=== PATIENT | male | born 1975 | race Hispanic/Latino ===

== ENCOUNTER 2019-01-03 11:40 | Emergency (ER) | payer BC ==
[~2019-01-03] VITALS: Ht 170.2 cm; Wt 141.8 kg
[2019-01-03] MEDS ORDERED: SODIUM CHLORIDE 0.9% 1000ML 1,000 ML IV SCH (12:00)
[2019-01-03] MEDS ORDERED: ONDANSETRON ODT8 MG PO (12:04)
[2019-01-03] MEDS ORDERED: MECLIZINE HCL12.5 MG PO (12:04)
[2019-01-03] MEDS ORDERED: MECLIZINE HCL 12.5 MG TAB PO ONE (12:15)
[2019-01-03] MEDS ORDERED: HYDROCHLOROTHIA25 MG (12:23)
[2019-01-03] MEDS ORDERED: LOSARTAN POTAS100 MG PO (12:23)
[2019-01-03] MEDS ORDERED: DILTIAZEM 24HR120 M1 (12:23)
[2019-01-03] MEDS ORDERED: ONDANSETRON HCL INJ 2MG/ML 2ML 2 MG/ML VIAL ONE (12:30)
[2019-01-03] MEDS ORDERED: MECLIZINE HCL 12.5 MG TAB ONE (12:30)
[2019-01-03] MEDS ORDERED: ONDANSETRON HCL INJ 2MG/ML 2ML 2 MG/ML VIAL IV ONE (12:30)
[2019-01-03] MEDS ORDERED: SODIUM CHLORIDE 0.9% 1000ML 1,000 ML ONE (12:31)
--- NOTE | 2019-01-03 12:46 | Diagnostic Imaging Report ---
History: Dizziness, headache Comparison studies: None Technique: Axial images were obtained from the skull base to the vertex. Coronal and sagittal reconstructions obtained from the axial data. Dose modulation, iterative reconstruction, and/or weight based adjustment of the mA/kV was utilized to reduce the radiation dose to as low as reasonably achievable. Findings: Scalp/skull: No abnormalities. No fractures, blastic or lytic lesions. Extra-axial spaces: No masses. No fluid collections. Brain sulci: Appropriate for age. Ventricles: Normal in size and configuration. No hydrocephalus. Parenchyma: No abnormal densities. No masses, hemorrhage, acute or chronic cortical vascular insults. Sellar/suprasellar region: No abnormalities Craniocervical junction: Patent foramen magnum. No Chiari one malformation. IMPRESSION: No abnormalities . Signed by: DR Vincent Brown M.D. on 01/03/2019 12:42 PM
[2019-01-03 13:47] VITALS: BP 130/69
== END 2019-01-03 13:25 | disposition home or self-care (01) ==
LOC: FSED 11:40
DX: R42 Dizziness and giddiness (principal); R11.0 Nausea; H81.10 Benign paroxysmal vertigo, unspecified ear
CPT/HCPCS: 70450; 80053; 84484; 85025; 93005; 96374; 99284; J2405; J7030; J8597